=== PATIENT | female | born 1950 | race Caucasian/White ===

== ENCOUNTER 2023-10-11 07:22 | Inpatient (IN) | payer MEDICARE, OTHER ==
[2023-10-11] VITALS (15 sets, daily range): BP systolic 61–151; BP diastolic 46–101; TEMP 98.3–99.9; O2SAT 96–100
[~2023-10-11] VITALS: Ht 162.6 cm; Wt 60.8 kg
[2023-10-11] MEDS ORDERED: FAMOTIDINE/PF INJ 20 MG/2 ML VIAL IV ONE ×2 (07:51→20:15)
[2023-10-11] MEDS ORDERED: ONDANSETRON HCL/PF 4 MG/2 ML VIAL ONE (07:51)
[2023-10-11] MEDS ORDERED: MORPHINE SULFATE INJ 2 MG/ML DISP.SYRIN ONE (07:51)
[2023-10-11] MEDS: FAMOTIDINE/PF INJ 20 MG/2 ML VIAL IV ONE (07:53)
[2023-10-11] MEDS: ONDANSETRON HCL/PF 4 MG/2 ML VIAL IVP ONE (07:53)
[2023-10-11] MEDS: MORPHINE SULFATE INJ 2 MG/ML DISP.SYRIN IV ONE (07:53)
[2023-10-11] MEDS: IV NS 0.9% 1,000 ML BAG IV ONE (07:53)
[2023-10-11 08:10] LABS: BASOPHILS % (AUTO) 0.1 % (0.0-2.0); HEMATOCRIT 49 % (33-45); HEMOGLOBIN 16.3 g/dL (11.5-14.8); LYMPHOCYTES # (AUTO) 0.6 K/uL (0.8-4.8); LYMPHOCYTES % (AUTO) 3.4 % (20.0-44.0); MEAN CORPUSCULAR HEMOGLOBIN 30 PG (26.0-33.0); MEAN CORPUSCULAR HGB CONC 33 g/dl (31.0-36.0); MEAN CORPUSCULAR VOLUME 91 fL (82-100); MONOCYTES # (AUTO) 0.7 K/uL (0.1-1.30); MONOCYTES % (AUTO) 3.9 % (2.0-12.0); NEUTROPHILS # (AUTO) 15.6 K/uL (1.8-8.9); NEUTROPHILS % (AUTO) 92.6 % (43.0-81.0); PLATELET COUNT (AUTO) 224 K/uL (150-450); RED BLOOD CELL COUNT(AUTO) 5.42 MIL/uL (4.0-5.2); RED CELL DISTRIBUTION WIDTH 13.5 % (11.5-15.0); WHITE BLOOD COUNT (AUTO) 16.9 K/uL (4.3-11.0)
[2023-10-11 08:13] LABS: APPEARANCE,URINE CLEAR (CLEAR); BILIRUBIN,URINE NEGATIVE (NEGATIVE); BLOOD, URINE 1+ Ery/uL (NEGATIVE); COLOR,URINE YELLOW (YELLOW); KETONES,URINE 3+ mg/dL (NEGATIVE); LEUKOCYTE ESTERASE ,URINE NEGATIVE (NEGATIVE); NITRITE, URINE NEGATIVE (NEGATIVE); PH,URINE 6.5 (5.0-8.0); PROTEIN,URINE NEGATIVE (NEGATIVE); UGLUCOSE NEGATIVE (NEGATIVE); UROBILINOGEN,URINE 0.2 EU/dL (0.2)
[2023-10-11 08:19] LABS: CALCIUM, SERUM 9.8 mg/dL (8.5-10.1); CARBON DIOXIDE 27 mmol/L (21-32); CHLORIDE 98 mmol/L (98-107); CREATININE 0.8 mg/dL (0.6-1.3); GLUCOSE 179 mg/dL (74-106); POTASSIUM 3.3 mmol/L (3.5-5.1); SODIUM SERUM 137 mmol/L (136-145); UREA NITROGEN, BLOOD 19 mg/dL (7-18)
[2023-10-11 08:25] LABS: ALANINE AMINOTRANSFERASE 22 U/L (12-78); ALBUMIN 3.7 g/dL (3.4-5.0); ALKALINE PHOSPHATASE 130 U/L (46-116); ASPARTATE AMINOTRANSFERASE 20 U/L (15-37); BILIRUBIN,DIRECT 0.2 mg/dL (0.0-0.2); BILIRUBIN,TOTAL 0.7 mg/dL (0.2-1.0); LIPASE 28 U/L (16-77)
[2023-10-11 08:28] LABS: WBC,URINE 0-2 /HPF (0-3)
[2023-10-11 08:29] LABS: ADD URINE CULTURE NO; BACTERIA,URINE None seen /HPF (None Seen); TRICHOMONAS,URINE None Seen /HPF (None Seen); URINE AMORPHOUS URATE Few /HPF (None Seen); YEAST,URINE None Seen /HPF (None Seen)
[2023-10-11 08:33] LABS: URIC ACID CRYSTALS,URINE Few /HPF (None Seen)
[2023-10-11] MEDS ORDERED: ASPI-1420 PO (09:08)
[2023-10-11] MEDS ORDERED: VIT1TABL81 PO (09:08)
[2023-10-11] MEDS ORDERED: MULT-213 PO (09:08)
[2023-10-11] MEDS ORDERED: CALC-1026 PO (09:08)
[2023-10-11] MEDS ORDERED: LACT1CAP69 PO (09:08)
[2023-10-11] MEDS ORDERED: LEVO75TA7 PO (09:08)
[2023-10-11] MEDS ORDERED: CHOL200059 PO (09:08)
[2023-10-11] MEDS: ONDANSETRON HCL/PF 4 MG/2 ML VIAL IV PRN (12:45)
[2023-10-11] MEDS: IV D5/0.45 NACL 1,000 ML IV PRN (13:26)
[2023-10-11] MEDS ORDERED: DIATR MEGLU/DIATRIZOATE SODIUM 120 ML BOTTLE (GASTROGRAPHIN) ONE (13:55)
[2023-10-11] MEDS: ENOXAPARIN SODIUM 40 MG/0.4 ML DISP.SYRIN SQ SCH (15:27)
[2023-10-11 18:05] LABS: LACTIC ACID 12.5 mmol/L (0.4-2.0)
[2023-10-11] MEDS: IV NS 0.9% 1,000 ML IV ONE (18:31)
[2023-10-11] MEDS: Sodium Bicarbonate 150 MEQ in IV D5W 1,000 ML IV SCH (18:51)
[2023-10-11 19:03] LABS: ABG BASE EXCESS -15.8 mmol/L; ABG OXYGEN SATURATION 98.3 % (92.0-98.5); ABG PCO2 21.5 mmHg (35.0-45.0); ABG PH 7.229 (7.350-7.450); ABG PO2 137.3 mmHg (75.0-100.0); ABG TOTAL HEMOGLOBIN 21.3 G/dL (12.0-16.0); AaDO2 94.4 mmHg; COHb 0.3 % (0.5-1.5); MetHb 0.6 % (0.0-1.5); O2Hb 97.4 % (94.0-97.0); SITE, ABG Right Radial; VENT MODE, BG 4 LPM NC
[2023-10-11] MEDS: NOREPINEPHRINE 8 MG in IV D5W 242 ML IV PRN (19:04)
[2023-10-11] MEDS: CEFEPIME 1 GM in IV D5W 50 ML IV SCH (19:08)
[2023-10-11] MEDS ORDERED: BUPIVACAINE 0.5 % PF 150 MG/30 ML VIAL ONE (20:05)
[2023-10-11] MEDS ORDERED: ANESTHESIA TRAY IN PYXIS 1 EA TRAY MC ONE (20:05)
[2023-10-11] MEDS ORDERED: LIDOCAINE 1%-EPI 1:100,000 20 ML VIAL ONE (20:06)
[2023-10-11] MEDS ORDERED: KETAMINE HCL (500MG/10ML) 50 MG/ML VIAL ONE (20:14)
[2023-10-11] MEDS ORDERED: FENTANYL PF 100MCG/2ML AMPUL ONE (20:14)
[2023-10-11] MEDS ORDERED: HYDROMORPHONE INJ 2 MG/ML DISP.SYRIN ONE (20:14)
[2023-10-11] MEDS ORDERED: MIDAZOLAM HCL 2 MG/2ML VIAL ONE (20:14)
[2023-10-11] MEDS: VANCOMYCIN HCL 1.25 GM in IV D5W 250 ML IV SCH (20:16)
[2023-10-12] VITALS (100 sets, daily range): BP systolic 82–149; BP diastolic 51–95; TEMP 96.2–101.8; O2SAT 96–100
[2023-10-12 00:04] LABS: BASOPHILS % (AUTO) 0.2 % (0.0-2.0); EOSINOPHILS % (AUTO) 0.1 % (0.0-6.0); HEMATOCRIT 48 % (33-45); HEMOGLOBIN 15.7 g/dL (11.5-14.8); LYMPHOCYTES # (AUTO) 0.5 K/uL (0.8-4.8); LYMPHOCYTES % (AUTO) 9.2 % (20.0-44.0); MEAN CORPUSCULAR HEMOGLOBIN 30 PG (26.0-33.0); MEAN CORPUSCULAR HGB CONC 33 g/dl (31.0-36.0); MEAN CORPUSCULAR VOLUME 93 fL (82-100); MONOCYTES # (AUTO) 0.4 K/uL (0.1-1.30); MONOCYTES % (AUTO) 7.8 % (2.0-12.0); NEUTROPHILS # (AUTO) 4.6 K/uL (1.8-8.9); NEUTROPHILS % (AUTO) 82.7 % (43.0-81.0); PLATELET COUNT (AUTO) 150 K/uL (150-450); RED BLOOD CELL COUNT(AUTO) 5.17 MIL/uL (4.0-5.2); RED CELL DISTRIBUTION WIDTH 13.8 % (11.5-15.0); WHITE BLOOD COUNT (AUTO) 5.5 K/uL (4.3-11.0)
[2023-10-12 00:13] LABS: CALCIUM, SERUM 6.2 mg/dL (8.5-10.1); CARBON DIOXIDE 15 mmol/L (21-32); CHLORIDE 113 mmol/L (98-107); CREATININE 1.5 mg/dL (0.6-1.3); GLUCOSE 156 mg/dL (74-106); SODIUM SERUM 144 mmol/L (136-145); UREA NITROGEN, BLOOD 29 mg/dL (7-18)
[2023-10-12 00:17] LABS: POTASSIUM 2.8 mmol/L (3.5-5.1)
[2023-10-12 01:30] LABS: ALBUMIN 1.4 g/dL (3.4-5.0)
[2023-10-12 01:35] LABS: LACTIC ACID 7.2 mmol/L (0.4-2.0)
[2023-10-12] MEDS: ALBUMIN 25% 12.5 GM/50 ML BOTTLE IV ONE (01:54)
[2023-10-12] MEDS: POTASSIUM CL. PREMIX PERIPHER. 50 ML IV SCH (03:00)
[2023-10-12] MEDS: PROPOFOL 100 ML IV PRN (03:09)
[2023-10-12 04:16] LABS: BASOPHILS % (AUTO) 0.1 % (0.0-2.0); EOSINOPHILS % (AUTO) 0.1 % (0.0-6.0); HEMATOCRIT 52 % (33-45); HEMOGLOBIN 16.9 g/dL (11.5-14.8); LYMPHOCYTES # (AUTO) 0.7 K/uL (0.8-4.8); LYMPHOCYTES % (AUTO) 10.6 % (20.0-44.0); MEAN CORPUSCULAR HEMOGLOBIN 31 PG (26.0-33.0); MEAN CORPUSCULAR HGB CONC 33 g/dl (31.0-36.0); MEAN CORPUSCULAR VOLUME 94 fL (82-100); MONOCYTES # (AUTO) 0.3 K/uL (0.1-1.30); MONOCYTES % (AUTO) 4.5 % (2.0-12.0); NEUTROPHILS # (AUTO) 5.3 K/uL (1.8-8.9); NEUTROPHILS % (AUTO) 84.7 % (43.0-81.0); PLATELET COUNT (AUTO) 150 K/uL (150-450); RED CELL DISTRIBUTION WIDTH 14.4 % (11.5-15.0); WHITE BLOOD COUNT (AUTO) 6.3 K/uL (4.3-11.0)
[2023-10-12 04:47] LABS: CALCIUM, SERUM 6.8 mg/dL (8.5-10.1); CARBON DIOXIDE 17 mmol/L (21-32); CHLORIDE 109 mmol/L (98-107); CREATININE 1.7 mg/dL (0.6-1.3); GLUCOSE 203 mg/dL (74-106); MAGNESIUM 1.8 mg/dL (1.8-2.4); PHOSPHORUS 3.7 mg/dL (2.5-4.9); SODIUM SERUM 141 mmol/L (136-145); UREA NITROGEN, BLOOD 29 mg/dL (7-18)
[2023-10-12 04:56] LABS: CHOLESTEROL 89 mg/dL (<200); HDL CHOLESTEROL 57 mg/dL (40-60); LDL 28 mg/dL (0-99); TRIGLYCERIDES 39 mg/dL (30-150)
[2023-10-12] MEDS: Magnesium 1GM/D5W 100ML PREMIX PIGGYBACK IV ONE (09:39)
[2023-10-12] MEDS: PANTOPRAZOLE 40 MG VIAL IV SCH (09:53)
[2023-10-12] MEDS ORDERED: CLINDAMYCIN 300 MG in IV D5W 50 ML IV SCH (13:00)
[2023-10-12] MEDS ORDERED: METRONIDAZOLE 500MG/ NS 100ML 500 MG in PREMIX 1 EA IV SCH (13:00)
[2023-10-12] MEDS: CLINDAMYCIN 600 MG in IV NS 0.9% 46 ML IV SCH (13:27)
[2023-10-12 17:08] LABS: CALCIUM, SERUM 6.3 mg/dL (8.5-10.1); CARBON DIOXIDE 20 mmol/L (21-32); CHLORIDE 101 mmol/L (98-107); GLUCOSE 169 mg/dL (74-106); POTASSIUM 4.2 mmol/L (3.5-5.1); SODIUM SERUM 133 mmol/L (136-145); UREA NITROGEN, BLOOD 38 mg/dL (7-18)
[2023-10-12] MEDS: ACETAMINOPHEN 650 MG/SUPP.RECT RC PRN (17:15)
[2023-10-12] MEDS: VANCOMYCIN 500 MG in IV D5W 100ml IV SCH (19:01)
[2023-10-12] MEDS: NOREPINEPHRINE 32 MG in IV NS 0.9% 218 ML IV PRN (20:25)
[2023-10-13] VITALS (100 sets, daily range): BP systolic 67–138; BP diastolic 44–82; TEMP 98.1–100.7; O2SAT 93–99
[2023-10-13 04:22] LABS: BASOPHILS % (AUTO) 0.1 % (0.0-2.0); EOSINOPHILS % (AUTO) 0.3 % (0.0-6.0); HEMATOCRIT 46 % (33-45); HEMOGLOBIN 15.4 g/dL (11.5-14.8); LYMPHOCYTES # (AUTO) 0.6 K/uL (0.8-4.8); LYMPHOCYTES % (AUTO) 4.2 % (20.0-44.0); MEAN CORPUSCULAR HEMOGLOBIN 30 PG (26.0-33.0); MEAN CORPUSCULAR HGB CONC 34 g/dl (31.0-36.0); MEAN CORPUSCULAR VOLUME 90 fL (82-100); MONOCYTES # (AUTO) 0.4 K/uL (0.1-1.30); MONOCYTES % (AUTO) 3.3 % (2.0-12.0); NEUTROPHILS # (AUTO) 12.4 K/uL (1.8-8.9); NEUTROPHILS % (AUTO) 92.1 % (43.0-81.0); PLATELET COUNT (AUTO) 81 K/uL (150-450); RED BLOOD CELL COUNT(AUTO) 5.06 MIL/uL (4.0-5.2); RED CELL DISTRIBUTION WIDTH 13.6 % (11.5-15.0); WHITE BLOOD COUNT (AUTO) 13.4 K/uL (4.3-11.0)
[2023-10-13 04:48] LABS: ALANINE AMINOTRANSFERASE 176 U/L (12-78); ALKALINE PHOSPHATASE 82 U/L (46-116); ASPARTATE AMINOTRANSFERASE 204 U/L (15-37); BILIRUBIN,TOTAL 0.6 mg/dL (0.2-1.0); CARBON DIOXIDE 23 mmol/L (21-32); CHLORIDE 96 mmol/L (98-107); CREATININE 2.4 mg/dL (0.6-1.3); GLUCOSE 112 mg/dL (74-106); MAGNESIUM 2.6 mg/dL (1.8-2.4); PHOSPHORUS 4.6 mg/dL (2.5-4.9); POTASSIUM 4.7 mmol/L (3.5-5.1); SODIUM SERUM 132 mmol/L (136-145); TOTAL PROTEIN, SERUM 4.3 g/dL (6.4-8.2); UREA NITROGEN, BLOOD 43 mg/dL (7-18)
[2023-10-13 04:53] LABS: ALBUMIN 1.4 g/dL (3.4-5.0)
[2023-10-13 04:56] LABS: NEUTROPHILS % (MANUAL) 90 (42-76)
[2023-10-13 04:57] LABS: ANISOCYTOSIS 1+; BASOPHILS % (MANUAL) 0 % (0.0-2.0); EOSINOPHILS % (MANUAL) 0 % (0-4); LYMPHOCYTES % (MANUAL) 6 % (16-48); MONOCYTES % (MANUAL) 4 % (0-11.0); PLATELET ESTIMATE DECREASED
[2023-10-13 05:37] LABS: ABG BASE EXCESS -3.4 mmol/L; ABG OXYGEN SATURATION 95.1 % (92.0-98.5); ABG PCO2 24.2 mmHg (35.0-45.0); ABG PH 7.485 (7.350-7.450); ABG PO2 71.8 mmHg (75.0-100.0); ABG TOTAL HEMOGLOBIN 16.3 G/dL (12.0-16.0); AaDO2 185.6 mmHg; COHb 1.3 % (0.5-1.5); MetHb 0.3 % (0.0-1.5); O2Hb 93.6 % (94.0-97.0); PEEP,BG 5 cm H2O; SITE, ABG Right Radial; VENT MODE, BG AC12 500 FIO2 40 PEEP+5; VT, ABG 500 mL
[2023-10-13 17:27] LABS: ABG BASE EXCESS 1.9 mmol/L; ABG OXYGEN SATURATION 96.5 % (92.0-98.5); ABG PCO2 29.1 mmHg (35.0-45.0); ABG PH 7.526 (7.350-7.450); ABG PO2 79.7 mmHg (75.0-100.0); ABG TOTAL HEMOGLOBIN 14.6 G/dL (12.0-16.0); COHb 1.4 % (0.5-1.5); MetHb 0.3 % (0.0-1.5); O2Hb 94.9 % (94.0-97.0); SITE, ABG Right Radial; VENT MODE, BG CPAP PS 15 +5 40%
[2023-10-13] MEDS ORDERED: [UNRECOGNIZED DRUG - OTHER] IV PRN (18:30)
[2023-10-13] MEDS ORDERED: MEROPENEM 1 G in IV NS 0.9% 100 ML IV SCH (18:30)
[2023-10-13] MEDS: MEROPENEM 500 MG in IV NS 0.9% 50 ML IV SCH (19:04)
[2023-10-13 19:30] LABS: BASOPHILS % (AUTO) 0.1 % (0.0-2.0); EOSINOPHILS # (AUTO) 0.1 K/uL (0.0-0.7); EOSINOPHILS % (AUTO) 0.5 % (0.0-6.0); LYMPHOCYTES # (AUTO) 0.3 K/uL (0.8-4.8); NEUTROPHILS # (AUTO) 12.4 K/uL (1.8-8.9); WHITE BLOOD COUNT (AUTO) 12.8 K/uL (4.3-11.0)
[2023-10-13 19:36] LABS: HEMATOCRIT 41 % (33-45); HEMOGLOBIN 14.1 g/dL (11.5-14.8); LYMPHOCYTES % (AUTO) 2.2 % (20.0-44.0); MEAN CORPUSCULAR HEMOGLOBIN 31 PG (26.0-33.0); MEAN CORPUSCULAR HGB CONC 35 g/dl (31.0-36.0); MEAN CORPUSCULAR VOLUME 89 fL (82-100); MONOCYTES # (AUTO) 0.1 K/uL (0.1-1.30); MONOCYTES % (AUTO) 0.5 % (2.0-12.0); NEUTROPHILS % (AUTO) 96.7 % (43.0-81.0); RED BLOOD CELL COUNT(AUTO) 4.58 MIL/uL (4.0-5.2); RED CELL DISTRIBUTION WIDTH 13.8 % (11.5-15.0)
[2023-10-13 19:41] LABS: PLATELET COUNT (AUTO) 48 K/uL (150-450)
[2023-10-13 20:14] LABS: ANISOCYTOSIS 1+; BAND % (MANUAL) 2 % (0.0-5.0); LYMPHOCYTES % (MANUAL) 4 % (16-48); MONOCYTES % (MANUAL) 2 % (0-11.0); NEUTROPHILS % (MANUAL) 92 (42-76); PLATELET ESTIMATE DECREASED
[2023-10-13 20:18] LABS: ALANINE AMINOTRANSFERASE 269 U/L (12-78); ALKALINE PHOSPHATASE 97 U/L (46-116); ASPARTATE AMINOTRANSFERASE 346 U/L (15-37); BILIRUBIN,TOTAL 0.7 mg/dL (0.2-1.0); CALCIUM, SERUM 6.3 mg/dL (8.5-10.1); CARBON DIOXIDE 28 mmol/L (21-32); CHLORIDE 93 mmol/L (98-107); CREATININE 2.3 mg/dL (0.6-1.3); GLUCOSE 75 mg/dL (74-106); MAGNESIUM 2.4 mg/dL (1.8-2.4); PHOSPHORUS 5.3 mg/dL (2.5-4.9); POTASSIUM 4.4 mmol/L (3.5-5.1); SODIUM SERUM 133 mmol/L (136-145); UREA NITROGEN, BLOOD 49 mg/dL (7-18)
[2023-10-13 20:21] LABS: ALBUMIN 1.2 g/dL (3.4-5.0)
[2023-10-13] MEDS ORDERED: CEFEPIME 1 GM in IV D5W 50 ML IV SCH (21:00)
[2023-10-13] MEDS: ALBUMIN 25% 100 ML IV ONE (22:17)
[2023-10-13] MEDS: ALBUMIN 25% 25 GM in PREMIX 1 EA IV ONE (22:29)
[2023-10-14] VITALS (36 sets, daily range): BP systolic 98–145; BP diastolic 35–62; TEMP 98.3–99; O2SAT 96–100
[2023-10-14 03:44] LABS: EOSINOPHILS # (AUTO) 0.1 K/uL (0.0-0.7); EOSINOPHILS % (AUTO) 0.8 % (0.0-6.0); HEMATOCRIT 34 % (33-45); HEMOGLOBIN 11.9 g/dL (11.5-14.8); LYMPHOCYTES # (AUTO) 0.3 K/uL (0.8-4.8); LYMPHOCYTES % (AUTO) 3.4 % (20.0-44.0); MEAN CORPUSCULAR HEMOGLOBIN 31 PG (26.0-33.0); MEAN CORPUSCULAR HGB CONC 35 g/dl (31.0-36.0); MEAN CORPUSCULAR VOLUME 88 fL (82-100); MONOCYTES # (AUTO) 0.1 K/uL (0.1-1.30); MONOCYTES % (AUTO) 0.9 % (2.0-12.0); NEUTROPHILS # (AUTO) 7.8 K/uL (1.8-8.9); NEUTROPHILS % (AUTO) 94.9 % (43.0-81.0); RED BLOOD CELL COUNT(AUTO) 3.88 MIL/uL (4.0-5.2); RED CELL DISTRIBUTION WIDTH 13.5 % (11.5-15.0); WHITE BLOOD COUNT (AUTO) 8.2 K/uL (4.3-11.0)
[2023-10-14 04:03] LABS: ALANINE AMINOTRANSFERASE 217 U/L (12-78); ALBUMIN 1.6 g/dL (3.4-5.0); ALKALINE PHOSPHATASE 85 U/L (46-116); ASPARTATE AMINOTRANSFERASE 246 U/L (15-37); CARBON DIOXIDE 34 mmol/L (21-32); CHLORIDE 92 mmol/L (98-107); CREATININE 2.1 mg/dL (0.6-1.3); GLUCOSE 69 mg/dL (74-106); LIPASE 8 U/L (16-77); MAGNESIUM 2.4 mg/dL (1.8-2.4); POTASSIUM 3.7 mmol/L (3.5-5.1); SODIUM SERUM 134 mmol/L (136-145); TOTAL PROTEIN, SERUM 3.9 g/dL (6.4-8.2); UREA NITROGEN, BLOOD 49 mg/dL (7-18)
[2023-10-14 04:13] LABS: ERYTHROCYTE SEDIMENTATION RATE 8 MM/HR (0-30)
[2023-10-14 04:14] LABS: PLATELET COUNT (AUTO) 32 K/uL (150-450)
[2023-10-14 04:16] LABS: LACTIC ACID 5.3 mmol/L (0.4-2.0)
[2023-10-14 04:54] LABS: BAND % (MANUAL) 2 % (0.0-5.0); BASOPHILS % (MANUAL) 0 % (0.0-2.0); EOSINOPHILS % (MANUAL) 0 % (0-4); LYMPHOCYTES % (MANUAL) 5 % (16-48); MONOCYTES % (MANUAL) 2 % (0-11.0); NEUTROPHILS % (MANUAL) 91 (42-76); PLATELET ESTIMATE DECREASED
[2023-10-14] MEDS: IV D5W 1,000 ML IV PRN (06:23)
[2023-10-14 07:44] LABS: BILIRUBIN,DIRECT 0.5 mg/dL (0.0-0.2)
[2023-10-14 07:53] LABS: LACTIC ACID REFLEX 4.7 mmol/L (0.4-1.9)
[2023-10-14] MEDS: IV LR 1000 ML 1,000 ML IV SCH (09:18)
[2023-10-14 11:35] LABS: D-DIMER 2.26 mg/L(FEU (0.17-0.50); INR 1.18 (0.91-1.10); PARTIAL THROMBOPLASTIN TIME 60.1 SEC (24.3-34.3); PROTHROMBIN TIME 12.4 SECS (9.2-11.1)
[2023-10-14] MEDS ORDERED: NOREPINEPHRINE 8 MG in IV D5W 250ML IV PRN (19:00)
[2023-10-14] MEDS: VANCOMYCIN 750 MG in IV D5W 250 ML IV SCH (20:30)
[2023-10-15] VITALS (50 sets, daily range): BP systolic 98–150; BP diastolic 45–98; TEMP 98.4–99.4; O2SAT 91–100
[2023-10-15 04:22] LABS: EOSINOPHILS # (AUTO) 0.9 K/uL (0.0-0.7); EOSINOPHILS % (AUTO) 7.9 % (0.0-6.0); HEMATOCRIT 35 % (33-45); HEMOGLOBIN 11.8 g/dL (11.5-14.8); LYMPHOCYTES # (AUTO) 0.3 K/uL (0.8-4.8); LYMPHOCYTES % (AUTO) 2.3 % (20.0-44.0); MEAN CORPUSCULAR HEMOGLOBIN 31 PG (26.0-33.0); MEAN CORPUSCULAR HGB CONC 34 g/dl (31.0-36.0); MEAN CORPUSCULAR VOLUME 90 fL (82-100); MONOCYTES # (AUTO) 0.1 K/uL (0.1-1.30); MONOCYTES % (AUTO) 0.5 % (2.0-12.0); NEUTROPHILS # (AUTO) 10.4 K/uL (1.8-8.9); NEUTROPHILS % (AUTO) 89.3 % (43.0-81.0); RED BLOOD CELL COUNT(AUTO) 3.86 MIL/uL (4.0-5.2); RED CELL DISTRIBUTION WIDTH 13.8 % (11.5-15.0); WHITE BLOOD COUNT (AUTO) 11.7 K/uL (4.3-11.0)
[2023-10-15 04:34] LABS: PLATELET COUNT (AUTO) 39 K/uL (150-450)
[2023-10-15 04:36] LABS: RHEUMATOID FACTOR SCREEN NEGATIVE (NEGATIVE)
[2023-10-15 04:45] LABS: D-DIMER 2.48 mg/L(FEU (0.17-0.50); INR 1.06 (0.91-1.10); PARTIAL THROMBOPLASTIN TIME 48.7 SEC (24.3-34.3); PROTHROMBIN TIME 11.2 SECS (9.2-11.1)
[2023-10-15 04:55] LABS: ALANINE AMINOTRANSFERASE 182 U/L (12-78); ALKALINE PHOSPHATASE 104 U/L (46-116); ASPARTATE AMINOTRANSFERASE 155 U/L (15-37); CALCIUM, SERUM 7.5 mg/dL (8.5-10.1); CARBON DIOXIDE 39 mmol/L (21-32); CHLORIDE 95 mmol/L (98-107); CREATININE 1.4 mg/dL (0.6-1.3); LIPASE 20 U/L (16-77); MAGNESIUM 2.4 mg/dL (1.8-2.4); TOTAL PROTEIN, SERUM 4.1 g/dL (6.4-8.2); UREA NITROGEN, BLOOD 40 mg/dL (7-18)
[2023-10-15 05:09] LABS: C-REACTIVE PROTEIN > 25.00 mg/dL (0.0-0.30)
[2023-10-15 05:17] LABS: SODIUM SERUM 136 mmol/L (136-145)
[2023-10-15 05:31] LABS: ALBUMIN 1.4 g/dL (3.4-5.0); GLUCOSE 46 mg/dL (74-106); POTASSIUM 2.5 mmol/L (3.5-5.1)
[2023-10-15] MEDS: DEXTROSE 50%-WATER 50 ML DISP.SYRIN IVP STA (05:45)
[2023-10-15] MEDS: ALBUMIN 25% 100 ML IV ONE (06:25)
[2023-10-15] MEDS: POTASSIUM CL. PREMIX PERIPHER. 50 ML IV SCH ×2 (06:27→15:41)
[2023-10-15] MEDS: ALBUMIN 25% 25 GM in PREMIX 1 EA IV SCH (06:28)
[2023-10-15] MEDS: BLOOD SUGAR DIAGNOSTIC 1 EACH STRIP IN PRN (07:28)
[2023-10-15] MEDS: Potassium Chloride 40 MEQ in IV D5/0.45 NACL 1,000 ML IV SCH (08:54)
[2023-10-15 10:25] LABS: ANISOCYTOSIS 1+; BAND % (MANUAL) 2 % (0.0-5.0); BASOPHILS % (MANUAL) 0 % (0.0-2.0); EOSINOPHILS % (MANUAL) 0 % (0-4); LYMPHOCYTES % (MANUAL) 6 % (16-48); MONOCYTES % (MANUAL) 3 % (0-11.0); NEUTROPHILS % (MANUAL) 89 (42-76); OVALOCYTES 1+; PLATELET ESTIMATE DECREASED
[2023-10-15 14:54] LABS: CALCIUM, SERUM 7.5 mg/dL (8.5-10.1); CREATININE 1.1 mg/dL (0.6-1.3)
[2023-10-15 15:08] LABS: POTASSIUM 2.6 mmol/L (3.5-5.1)
[2023-10-15] MEDS: VANCOMYCIN 1 GM in IV D5W 250ml IV SCH (20:13)
[2023-10-15] MEDS: MORPHINE SULFATE INJ 2 MG/ML DISP.SYRIN IV PRN (21:15)
[2023-10-16] VITALS (36 sets, daily range): BP systolic 115–176; BP diastolic 43–83; TEMP 98.5–99.8; O2SAT 94–100
[2023-10-16] MEDS: SUCRALFATE 1 G/10 ML UDC PO SCH (00:03)
[2023-10-16 01:33] LABS: CALCIUM, SERUM 7.6 mg/dL (8.5-10.1); POTASSIUM 3.5 mmol/L (3.5-5.1)
[2023-10-16 04:47] LABS: EOSINOPHILS % (AUTO) 0.1 % (0.0-6.0); HEMATOCRIT 30 % (33-45); HEMOGLOBIN 10.2 g/dL (11.5-14.8); LYMPHOCYTES # (AUTO) 0.4 K/uL (0.8-4.8); LYMPHOCYTES % (AUTO) 2.3 % (20.0-44.0); MEAN CORPUSCULAR HEMOGLOBIN 30 PG (26.0-33.0); MEAN CORPUSCULAR HGB CONC 34 g/dl (31.0-36.0); MEAN CORPUSCULAR VOLUME 89 fL (82-100); MONOCYTES # (AUTO) 0.1 K/uL (0.1-1.30); MONOCYTES % (AUTO) 0.6 % (2.0-12.0); NEUTROPHILS # (AUTO) 17.2 K/uL (1.8-8.9); RED BLOOD CELL COUNT(AUTO) 3.34 MIL/uL (4.0-5.2); RED CELL DISTRIBUTION WIDTH 13.8 % (11.5-15.0); WHITE BLOOD COUNT (AUTO) 17.7 K/uL (4.3-11.0)
[2023-10-16 05:01] LABS: D-DIMER 2.45 mg/L(FEU (0.17-0.50); INR 1.02 (0.91-1.10); PROTHROMBIN TIME 10.8 SECS (9.2-11.1)
[2023-10-16 05:11] LABS: BILIRUBIN,TOTAL 0.8 mg/dL (0.2-1.0); CALCIUM, SERUM 8.2 mg/dL (8.5-10.1); CREATININE 0.9 mg/dL (0.6-1.3); MAGNESIUM 2.3 mg/dL (1.8-2.4); POTASSIUM 3.5 mmol/L (3.5-5.1); TOTAL PROTEIN, SERUM 4.4 g/dL (6.4-8.2)
[2023-10-16 05:15] LABS: PLATELET COUNT (AUTO) 35 K/uL (150-450)
[2023-10-16] MEDS: IV NS 0.9% 250 ML IV PRN (05:26)
[2023-10-16] MEDS: METOCLOPRAMIDE HCL 10 MG/2 ML VIAL IV SCH (08:32)
[2023-10-16 09:11] LABS: IMMUNOGLOBULIN A, SERUM 133 mg/dL (64-422); IMMUNOGLOBULIN G, SERUM 296 mg/dL (586-1602); IMMUNOGLOBULIN M, SERUM 30 mg/dL (26-217)
[2023-10-16 09:53] LABS: ANISOCYTOSIS 1+; BAND % (MANUAL) 9 % (0.0-5.0); LYMPHOCYTES % (MANUAL) 6 % (16-48); MONOCYTES % (MANUAL) 4 % (0-11.0); NEUTROPHILS % (MANUAL) 81 (42-76); PLATELET ESTIMATE DECREASED
[2023-10-16 11:10] LABS: FOLIC ACID 11.2 ng/mL (>3.0)
[2023-10-16] MEDS: VANCOMYCIN 500 MG in IV D5W 100ml IV SCH (13:17)
[2023-10-16 14:10] LABS: FREE KAPPA LT CHAINS SERUM 14.4 mg/L (3.3-19.4)
[2023-10-16] MEDS: CLONIDINE HCL 0.1 MG TABLET PO PRN (21:35)
[2023-10-17] VITALS (37 sets, daily range): BP systolic 112–198; BP diastolic 41–167; TEMP 97.4–99.2; O2SAT 95–100
[2023-10-17 02:43] LABS: OCCULT BLOOD STOOL POSITIVE (NEGATIVE)
[2023-10-17 04:38] LABS: BASOPHILS # (AUTO) 0.1 K/uL (0.0-0.2); BASOPHILS % (AUTO) 0.3 % (0.0-2.0); EOSINOPHILS % (AUTO) 0.2 % (0.0-6.0); HEMATOCRIT 32 % (33-45); HEMOGLOBIN 10.9 g/dL (11.5-14.8); LYMPHOCYTES # (AUTO) 0.5 K/uL (0.8-4.8); LYMPHOCYTES % (AUTO) 2.5 % (20.0-44.0); MEAN CORPUSCULAR HEMOGLOBIN 30 PG (26.0-33.0); MEAN CORPUSCULAR HGB CONC 34 g/dl (31.0-36.0); MEAN CORPUSCULAR VOLUME 90 fL (82-100); MONOCYTES # (AUTO) 0.1 K/uL (0.1-1.30); MONOCYTES % (AUTO) 0.4 % (2.0-12.0); NEUTROPHILS # (AUTO) 19.5 K/uL (1.8-8.9); NEUTROPHILS % (AUTO) 96.6 % (43.0-81.0); RED BLOOD CELL COUNT(AUTO) 3.61 MIL/uL (4.0-5.2); WHITE BLOOD COUNT (AUTO) 20.2 K/uL (4.3-11.0)
[2023-10-17 04:41] LABS: ALBUMIN 1.6 g/dL (3.4-5.0); BILIRUBIN,DIRECT 0.3 mg/dL (0.0-0.2); BILIRUBIN,TOTAL 0.6 mg/dL (0.2-1.0); CALCIUM, SERUM 8.1 mg/dL (8.5-10.1); CREATININE 0.8 mg/dL (0.6-1.3); D-DIMER 3.23 mg/L(FEU (0.17-0.50); INR 1.03 (0.91-1.10); MAGNESIUM 2.2 mg/dL (1.8-2.4); PARTIAL THROMBOPLASTIN TIME 36.2 SEC (24.3-34.3); PHOSPHORUS 1.6 mg/dL (2.5-4.9); POTASSIUM 4.1 mmol/L (3.5-5.1); PROTHROMBIN TIME 10.9 SECS (9.2-11.1); TOTAL PROTEIN, SERUM 4.5 g/dL (6.4-8.2)
[2023-10-17 04:42] LABS: PLATELET COUNT (AUTO) 44 K/uL (150-450)
[2023-10-17] MEDS ORDERED: PANTOPRAZOLE 40 MG TABLET.DR PO SCH (09:00)
[2023-10-17] MEDS: PANTOPRAZOLE 40 MG VIAL IV SCH (09:12)
[2023-10-17] MEDS: MEROPENEM 500 MG in IV NS 0.9% 100 ML IV ONE (09:13)
[2023-10-17 09:51] LABS: ANISOCYTOSIS 1+; BAND % (MANUAL) 8 % (0.0-5.0); BASOPHILS % (MANUAL) 0 % (0.0-2.0); EOSINOPHILS % (MANUAL) 0 % (0-4); LYMPHOCYTES % (MANUAL) 7 % (16-48); MONOCYTES % (MANUAL) 6 % (0-11.0); NEUTROPHILS % (MANUAL) 79 (42-76); OVALOCYTES 1+; PLATELET ESTIMATE DECREASED; STOMATOCYTES 1+
[2023-10-17] MEDS: SUCRALFATE 1 G TABLET PO SCH (10:43)
[2023-10-17] MEDS: Sodium Phosphate 30 MMOL in IV NS 0.9% 250 ML IV ONE (10:46)
[2023-10-17] MEDS: IV 1/2NS 1000 ML 1,000 ML IV PRN (12:00)
[2023-10-17] MEDS: VANCOMYCIN 500 MG in IV D5W 100ml IV ONE (15:14)
[2023-10-17] MEDS: MEROPENEM 1 G in IV NS 0.9% 100 ML IV SCH (20:48)
[2023-10-18] VITALS (24 sets, daily range): BP systolic 124–190; BP diastolic 39–98; TEMP 97.7–98.7; O2SAT 91–98
[2023-10-18] MEDS: VANCOMYCIN 750 MG in IV D5W 250 ML IV SCH (00:34)
[2023-10-18 04:34] LABS: BASOPHILS % (AUTO) 0.1 % (0.0-2.0); EOSINOPHILS % (AUTO) 0.3 % (0.0-6.0); HEMATOCRIT 30 % (33-45); HEMOGLOBIN 10.3 g/dL (11.5-14.8); LYMPHOCYTES # (AUTO) 0.7 K/uL (0.8-4.8); LYMPHOCYTES % (AUTO) 3.9 % (20.0-44.0); MEAN CORPUSCULAR HEMOGLOBIN 30 PG (26.0-33.0); MEAN CORPUSCULAR HGB CONC 34 g/dl (31.0-36.0); MEAN CORPUSCULAR VOLUME 90 fL (82-100); MONOCYTES # (AUTO) 0.2 K/uL (0.1-1.30); MONOCYTES % (AUTO) 0.9 % (2.0-12.0); NEUTROPHILS # (AUTO) 17.8 K/uL (1.8-8.9); NEUTROPHILS % (AUTO) 94.8 % (43.0-81.0); PLATELET COUNT (AUTO) 109 K/uL (150-450); RED BLOOD CELL COUNT(AUTO) 3.38 MIL/uL (4.0-5.2); RED CELL DISTRIBUTION WIDTH 13.9 % (11.5-15.0); WHITE BLOOD COUNT (AUTO) 18.8 K/uL (4.3-11.0)
[2023-10-18 05:03] LABS: ALANINE AMINOTRANSFERASE 65 U/L (12-78); ALKALINE PHOSPHATASE 99 U/L (46-116); ASPARTATE AMINOTRANSFERASE 33 U/L (15-37); BILIRUBIN,TOTAL 0.6 mg/dL (0.2-1.0); CALCIUM, SERUM 7.7 mg/dL (8.5-10.1); CARBON DIOXIDE 34 mmol/L (21-32); CHLORIDE 104 mmol/L (98-107); CREATININE 0.7 mg/dL (0.6-1.3); GLUCOSE 86 mg/dL (74-106); PHOSPHORUS 2.8 mg/dL (2.5-4.9); POTASSIUM 3.5 mmol/L (3.5-5.1); SODIUM SERUM 140 mmol/L (136-145); TOTAL PROTEIN, SERUM 4.3 g/dL (6.4-8.2); UREA NITROGEN, BLOOD 19 mg/dL (7-18)
[2023-10-18 05:06] LABS: ALBUMIN 1.4 g/dL (3.4-5.0); LACTIC ACID 0.8 mmol/L (0.4-2.0)
[2023-10-18 06:05] LABS: INR 1.05 (0.91-1.10); PARTIAL THROMBOPLASTIN TIME 36.9 SEC (24.3-34.3); PROTHROMBIN TIME 11.1 SECS (9.2-11.1)
[2023-10-18 06:08] LABS: D-DIMER 4.5 mg/L(FEU (0.17-0.50)
[2023-10-18] MEDS: FERROUS SULFATE (325 MG) 325 MG/TAB TABLET PO SCH (08:50)
[2023-10-18] MEDS: SUCRALFATE 1 G TABLET PO SCH (17:30)
[2023-10-18] MEDS: MEROPENEM 1 G in IV NS 0.9% 100 ML IV SCH (18:33)
[2023-10-18] MEDS: ACETAMINOPHEN 325 MG TABLET PO PRN (19:00)
[2023-10-19] VITALS (11 sets, daily range): BP systolic 112–177; BP diastolic 46–60; TEMP 97.7–98.9; O2SAT 96–100
[2023-10-19 07:05] LABS: ALBUMIN 1.6 g/dL (3.4-5.0); BILIRUBIN,TOTAL 0.7 mg/dL (0.2-1.0); CREATININE 0.6 mg/dL (0.6-1.3); MAGNESIUM 1.9 mg/dL (1.8-2.4); PHOSPHORUS 2.2 mg/dL (2.5-4.9); POTASSIUM 4.1 mmol/L (3.5-5.1); TOTAL PROTEIN, SERUM 4.6 g/dL (6.4-8.2)
[2023-10-19 07:38] LABS: BASOPHILS % (AUTO) 0.1 % (0.0-2.0); EOSINOPHILS % (AUTO) 0.1 % (0.0-6.0); HEMATOCRIT 32 % (33-45); HEMOGLOBIN 10.6 g/dL (11.5-14.8); LYMPHOCYTES # (AUTO) 0.6 K/uL (0.8-4.8); LYMPHOCYTES % (AUTO) 3.1 % (20.0-44.0); MEAN CORPUSCULAR HEMOGLOBIN 30 PG (26.0-33.0); MEAN CORPUSCULAR HGB CONC 33 g/dl (31.0-36.0); MEAN CORPUSCULAR VOLUME 90 fL (82-100); MONOCYTES # (AUTO) 0.2 K/uL (0.1-1.30); MONOCYTES % (AUTO) 0.9 % (2.0-12.0); NEUTROPHILS # (AUTO) 19.2 K/uL (1.8-8.9); NEUTROPHILS % (AUTO) 95.8 % (43.0-81.0); PLATELET COUNT (AUTO) 172 K/uL (150-450); RED BLOOD CELL COUNT(AUTO) 3.57 MIL/uL (4.0-5.2); RED CELL DISTRIBUTION WIDTH 14.1 % (11.5-15.0)
[2023-10-19] MEDS: hydrALAZINE HCL IV 20 MG VIAL IV PRN (08:43)
[2023-10-19] MEDS: AMLODIPINE BESYLATE 5 MG TABLET PO SCH (12:49)
[2023-10-19] MEDS: K PHOS NEUTRAL 250 MG TABLET PO ONE (16:31)
[2023-10-19] MEDS: ENOXAPARIN SODIUM 40 MG/0.4 ML DISP.SYRIN SQ SCH (18:50)
[2023-10-19] MEDS: SOD FERRIC GLUC 125 MG in IV NS 0.9% 100 ML IV SCH (19:23)
[2023-10-19 23:06] LABS: HEPATITIS Be AB Non Reactive (Negative)
[2023-10-19 23:35] LABS: ANISOCYTOSIS 1+; BAND % (MANUAL) 7 % (0.0-5.0); BASOPHILS % (MANUAL) 0 % (0.0-2.0); EOSINOPHILS % (MANUAL) 0 % (0-4); LYMPHOCYTES % (MANUAL) 6 % (16-48); MONOCYTES % (MANUAL) 3 % (0-11.0); NEUTROPHILS % (MANUAL) 84 (42-76); PLATELET ESTIMATE ADEQUATE
[2023-10-20] VITALS: BP 135/59; TEMP 98; O2SAT 96
[2023-10-20 04:00] VITALS: BP 156/41; TEMP 97.9; O2SAT 94
[2023-10-20 06:50] LABS: BASOPHILS % (AUTO) 0.1 % (0.0-2.0); HEMATOCRIT 34 % (33-45); HEMOGLOBIN 11.3 g/dL (11.5-14.8); LYMPHOCYTES # (AUTO) 0.7 K/uL (0.8-4.8); LYMPHOCYTES % (AUTO) 3.9 % (20.0-44.0); MEAN CORPUSCULAR HEMOGLOBIN 30 PG (26.0-33.0); MEAN CORPUSCULAR HGB CONC 33 g/dl (31.0-36.0); MEAN CORPUSCULAR VOLUME 90 fL (82-100); MONOCYTES # (AUTO) 0.4 K/uL (0.1-1.30); MONOCYTES % (AUTO) 2.2 % (2.0-12.0); NEUTROPHILS # (AUTO) 16.9 K/uL (1.8-8.9); NEUTROPHILS % (AUTO) 93.8 % (43.0-81.0); PLATELET COUNT (AUTO) 226 K/uL (150-450); RED BLOOD CELL COUNT(AUTO) 3.75 MIL/uL (4.0-5.2); RED CELL DISTRIBUTION WIDTH 13.7 % (11.5-15.0)
[2023-10-20 07:12] LABS: CALCIUM, SERUM 8.1 mg/dL (8.5-10.1); CREATININE 0.7 mg/dL (0.6-1.3); MAGNESIUM 1.9 mg/dL (1.8-2.4); PHOSPHORUS 2.8 mg/dL (2.5-4.9); POTASSIUM 3.9 mmol/L (3.5-5.1)
[2023-10-20 08:00] VITALS: BP 145/50; TEMP 98.1; O2SAT 95
[2023-10-20 08:11] LABS: *ANA ANTI-CENTROMERE B AB <0.2 AI (0.0-0.9); *ANA ANTI-DNA(DS) AB, QN <1 IU/mL (0-9); *ANA ANTI-JO-1 <0.2 AI (0.0-0.9); *ANA ANTICHROMATIN ANTIBODY <0.2 AI (0.0-0.9); *ANA RNP ANTIBODIES <0.2 AI (0.0-0.9); *ANA SJOGREN'S ANTI-SS-A <0.2 AI (0.0-0.9); *ANA SJOGREN'S ANTI-SS-B 0.2 AI (0.0-0.9); *ANAANTI-SCLERODERMA-70 AB <0.2 AI (0.0-0.9); *ANASMITH AB <0.2 AI (0.0-0.9)
[2023-10-20] MEDS: LEVOTHYROXINE SODIUM 75 MCG TABLET PO SCH (08:44)
[2023-10-20 11:40] VITALS: BP 118/50; TEMP 97.7; O2SAT 98
[2023-10-20 14:56] LABS: ANISOCYTOSIS 1+; LYMPHOCYTES % (MANUAL) 4 % (16-48); METAMYELOCYTES % 2 % (0-0); MONOCYTES % (MANUAL) 4 % (0-11.0); NEUTROPHILS % (MANUAL) 90 (42-76); PLATELET ESTIMATE ADEQUATE
[2023-10-20 16:00] VITALS: BP 108/60; TEMP 97.7; O2SAT 94
[2023-10-20 20:00] VITALS: BP 117/51; TEMP 98.2; O2SAT 93
[2023-10-21] VITALS (7 sets, daily range): BP systolic 117–124; BP diastolic 50–67; TEMP 97.4–98.4; O2SAT 93–100
[2023-10-21 04:09] LABS: *SPE A/G RATIO 1.1 (0.7-1.7); *SPE ALBUMIN 1.8 g/dL (2.9-4.4); *SPE ALPHA-1-GLOBULIN 0.4 g/dL (0.0-0.4); *SPE ALPHA-2-GLOBULIN 0.7 g/dL (0.4-1.0); *SPE BETA GLOBULIN 0.3 g/dL (0.7-1.3); *SPE GLOBULIN, TOTAL 1.7 g/dL (2.2-3.9); *SPE M-SPIKE 0.1 g/dL (Not Observed); *SPE PROTEIN TOTAL 3.5 g/dL (6.0-8.5); *SPEGAMMA GLOBULIN 0.3 g/dL (0.4-1.8)
[2023-10-21 07:19] LABS: CALCIUM, SERUM 8.6 mg/dL (8.5-10.1); CARBON DIOXIDE 22 mmol/L (21-32); CHLORIDE 103 mmol/L (98-107); CREATININE 0.7 mg/dL (0.6-1.3); GLUCOSE 70 mg/dL (74-106); POTASSIUM 3.4 mmol/L (3.5-5.1); SODIUM SERUM 138 mmol/L (136-145); UREA NITROGEN, BLOOD 16 mg/dL (7-18)
[2023-10-21 08:14] LABS: BASOPHILS % (AUTO) 0.1 % (0.0-2.0); EOSINOPHILS % (AUTO) 0.1 % (0.0-6.0); HEMATOCRIT 33 % (33-45); LYMPHOCYTES # (AUTO) 0.5 K/uL (0.8-4.8); LYMPHOCYTES % (AUTO) 2.1 % (20.0-44.0); MEAN CORPUSCULAR HEMOGLOBIN 30 PG (26.0-33.0); MEAN CORPUSCULAR HGB CONC 34 g/dl (31.0-36.0); MEAN CORPUSCULAR VOLUME 89 fL (82-100); MONOCYTES # (AUTO) 0.4 K/uL (0.1-1.30); NEUTROPHILS # (AUTO) 20.8 K/uL (1.8-8.9); NEUTROPHILS % (AUTO) 95.7 % (43.0-81.0); PLATELET COUNT (AUTO) 298 K/uL (150-450); RED BLOOD CELL COUNT(AUTO) 3.66 MIL/uL (4.0-5.2); RED CELL DISTRIBUTION WIDTH 13.7 % (11.5-15.0); WHITE BLOOD COUNT (AUTO) 21.8 K/uL (4.3-11.0)
[2023-10-21] MEDS: PANTOPRAZOLE 40 MG TABLET.DR PO SCH (09:00)
[2023-10-21] MEDS: POTASSIUM CHLORIDE 20 MEQ TAB.PRT.SR PO SCH (11:01)
[2023-10-21 11:14] LABS: ANISOCYTOSIS 1+; EOSINOPHILS % (MANUAL) 0 % (0-4); LYMPHOCYTES % (MANUAL) 5 % (16-48); MONOCYTES % (MANUAL) 4 % (0-11.0); NEUTROPHILS % (MANUAL) 91 (42-76); PLATELET ESTIMATE ADEQUATE
[2023-10-21] MEDS: LOPERAMIDE HCL (2 MG CAP) 2 MG CAPSULE PO PRN (12:27)
[2023-10-21] MEDS ORDERED: IOHEXOL-300 100 ML VIAL IV ONE (14:47)
[2023-10-21] MEDS ORDERED: IV NS 0.9% 250 ML IV ONE (14:47)
[2023-10-22] VITALS: BP 117/56; TEMP 98.1; O2SAT 95
[2023-10-22 05:00] VITALS: BP 121/54; TEMP 98.5; O2SAT 96
[2023-10-22 05:57] VITALS: O2SAT 99
[2023-10-22 07:30] VITALS: BP 110/51; TEMP 97.5; O2SAT 98
[2023-10-22 07:51] LABS: CALCIUM, SERUM 7.8 mg/dL (8.5-10.1); CREATININE 0.6 mg/dL (0.6-1.3); POTASSIUM 3.7 mmol/L (3.5-5.1)
[2023-10-22 08:08] LABS: BASOPHILS % (AUTO) 0.1 % (0.0-2.0); EOSINOPHILS % (AUTO) 0.1 % (0.0-6.0); HEMATOCRIT 31 % (33-45); HEMOGLOBIN 10.2 g/dL (11.5-14.8); LYMPHOCYTES # (AUTO) 0.3 K/uL (0.8-4.8); LYMPHOCYTES % (AUTO) 1.2 % (20.0-44.0); MEAN CORPUSCULAR HEMOGLOBIN 30 PG (26.0-33.0); MEAN CORPUSCULAR HGB CONC 33 g/dl (31.0-36.0); MEAN CORPUSCULAR VOLUME 91 fL (82-100); MONOCYTES # (AUTO) 0.5 K/uL (0.1-1.30); MONOCYTES % (AUTO) 2.3 % (2.0-12.0); NEUTROPHILS # (AUTO) 21.7 K/uL (1.8-8.9); NEUTROPHILS % (AUTO) 96.3 % (43.0-81.0); PLATELET COUNT (AUTO) 289 K/uL (150-450); RED CELL DISTRIBUTION WIDTH 13.8 % (11.5-15.0); WHITE BLOOD COUNT (AUTO) 22.5 K/uL (4.3-11.0)
[2023-10-22] MEDS ORDERED: DIATR MEGLU/DIATRIZOATE SODIUM 30 ML BOTTLE (GASTROGRAPHIN) ONE (08:14)
[2023-10-22 08:25] VITALS: BP 135/60; TEMP 98.2; O2SAT 97
[2023-10-22] MEDS ORDERED: TPN/PPN PER PHARMACY IV PRN (10:00)
[2023-10-22] MEDS ORDERED: IV D5/0.45 NACL 1,000 ML IV PRN (11:00)
[2023-10-22 11:15] LABS: MAGNESIUM 2.1 mg/dL (1.8-2.4); PHOSPHORUS 3.1 mg/dL (2.5-4.9); PREALBUMIN 10.3 MG/DL (18.0-35.7)
[2023-10-22] MEDS: BLOOD SUGAR DIAGNOSTIC 1 EACH STRIP IN SCH (11:29)
[2023-10-22] MEDS: TPN BAG #1 IV SCH (11:29)
[2023-10-22] MEDS ORDERED: DEXTROSE 50%-WATER 50 ML DISP.SYRIN IV PRN (11:30)
[2023-10-22] MEDS ORDERED: DOSE PER PHARMACY MICAFUNGIN 1 EA IV PRN (11:30)
[2023-10-22 11:34] LABS: ALBUMIN 1.4 g/dL (3.4-5.0)
[2023-10-22] MEDS: MICAFUNGIN SODIUM 100 MG in IV NS 0.9% 100 ML IV SCH (12:13)
[2023-10-22] MEDS: INSULIN REGULAR, HUMAN 100 UNIT/ML 3 ML VIAL SQ PRN (23:23)
[2023-10-23 01:22] VITALS: BP 125/59; TEMP 98.2; O2SAT 97
[2023-10-23 04:56] VITALS: BP 121/62; TEMP 98.2; O2SAT 98
[2023-10-23 06:50] LABS: BASOPHILS % (AUTO) 0.2 % (0.0-2.0); EOSINOPHILS % (AUTO) 0.2 % (0.0-6.0); HEMATOCRIT 29 % (33-45); HEMOGLOBIN 9.7 g/dL (11.5-14.8); LYMPHOCYTES # (AUTO) 0.2 K/uL (0.8-4.8); LYMPHOCYTES % (AUTO) 2.8 % (20.0-44.0); MEAN CORPUSCULAR HEMOGLOBIN 31 PG (26.0-33.0); MEAN CORPUSCULAR HGB CONC 34 g/dl (31.0-36.0); MEAN CORPUSCULAR VOLUME 90 fL (82-100); MONOCYTES # (AUTO) 0.4 K/uL (0.1-1.30); MONOCYTES % (AUTO) 5.2 % (2.0-12.0); NEUTROPHILS # (AUTO) 7.5 K/uL (1.8-8.9); NEUTROPHILS % (AUTO) 91.6 % (43.0-81.0); PLATELET COUNT (AUTO) 287 K/uL (150-450); RED BLOOD CELL COUNT(AUTO) 3.19 MIL/uL (4.0-5.2); RED CELL DISTRIBUTION WIDTH 13.4 % (11.5-15.0); WHITE BLOOD COUNT (AUTO) 8.2 K/uL (4.3-11.0)
[2023-10-23 07:00] VITALS: BP 115/70; TEMP 98.1; O2SAT 99
[2023-10-23 07:09] LABS: CHOLESTEROL 100 mg/dL (<200); HDL CHOLESTEROL 38 mg/dL (40-60); LDL 44 mg/dL (0-99); TRIGLYCERIDES 89 mg/dL (30-150)
[2023-10-23 07:32] LABS: CALCIUM, SERUM 7.8 mg/dL (8.5-10.1); CREATININE 0.6 mg/dL (0.6-1.3); MAGNESIUM 1.8 mg/dL (1.8-2.4); PHOSPHORUS 1.6 mg/dL (2.5-4.9); POTASSIUM 3.7 mmol/L (3.5-5.1)
[2023-10-23] MEDS: ENOXAPARIN SODIUM 40 MG/0.4 ML DISP.SYRIN SQ SCH (08:34)
[2023-10-23] MEDS ORDERED: Sodium Phosphate 15 MMOL in IV NS 0.9% 245 ML IV SCH (11:00)
[2023-10-23] MEDS: POTASSIUM PHOSPHATE MM 15 MMOL in IV NS 0.9% 250 ML IV SCH (11:07)
[2023-10-23 11:30] VITALS: BP 126/65; TEMP 97.9; O2SAT 100
[2023-10-23] MEDS: TPN BAG #2 IV SCH (12:08)
[2023-10-23 16:00] VITALS: BP 112/50; TEMP 98.2; O2SAT 99
[2023-10-23] MEDS ORDERED: Z GUARD REMEDY 4 OZ OINT TP SCH (17:00)
[2023-10-23] MEDS ORDERED: Z GUARD REMEDY 4 OZ OINT TP PRN (17:00)
[2023-10-23 20:15] VITALS: BP 119/56; TEMP 98.1; O2SAT 98
== END 2023-10-23 20:20 | DRG 853 ==
LOC: ER 07:26 → MEDSG1 10:44 → ICU 18:07 → TELE 10-19 00:46
PROVIDERS: ATTEND Internal Medicine
PROC: 0DBB0ZZ Excision of Ileum, Open Approach (ICD-10-PCS; principal; 2023-10-11)
PROC: 0D1B0ZB Bypass Ileum to Ileum, Open Approach (ICD-10-PCS; 2023-10-11)
PROC: 0DNU0ZZ Release Omentum, Open Approach (ICD-10-PCS; 2023-10-11)
PROC: 02HV33Z Insertion of Infusion Device into Superior Vena Cava, Percutaneous Approach (ICD-10-PCS; 2023-10-12)
PROC: B548ZZA Ultrasonography of Superior Vena Cava, Guidance (ICD-10-PCS; 2023-10-12)
PROC: 30233R1 Transfusion of Nonautologous Platelets into Peripheral Vein, Percutaneous Approach (ICD-10-PCS; 2023-10-14)
DX: A41.9 Sepsis, unspecified organism (principal); J96.00 Acute respiratory failure, unspecified whether with hypoxia or hypercapnia; R65.21 Severe sepsis with septic shock; N17.0 Acute kidney failure with tubular necrosis; R57.1 Hypovolemic shock; K56.51 Intestinal adhesions [bands], with partial obstruction; E87.1 Hypo-osmolality and hyponatremia; E87.4 Mixed disorder of acid-base balance; D84.9 Immunodeficiency, unspecified; G93.40 Encephalopathy, unspecified; I82.612 Acute embolism and thrombosis of superficial veins of left upper extremity; J90 Pleural effusion, not elsewhere classified; J98.11 Atelectasis; K56.7 Ileus, unspecified; E83.51 Hypocalcemia; E86.0 Dehydration; E87.6 Hypokalemia; E03.9 Hypothyroidism, unspecified; Z88.1 Allergy status to other antibiotic agents; Z79.82 Long term (current) use of aspirin; Z79.890 Hormone replacement therapy; Z79.899 Other long term (current) drug therapy; Z90.710 Acquired absence of both cervix and uterus; R79.89 Other specified abnormal findings of blood chemistry; E87.5 Hyperkalemia; D69.6 Thrombocytopenia, unspecified; D75.1 Secondary polycythemia; K31.84 Gastroparesis; M89.8X9 Other specified disorders of bone, unspecified site; Z85.3 Personal history of malignant neoplasm of breast; Z92.3 Personal history of irradiation; Z90.10 Acquired absence of unspecified breast and nipple; R74.01 Elevation of levels of liver transaminase levels; D46.9 Myelodysplastic syndrome, unspecified
CPT/HCPCS: 31720; 36415; 36569; 36600; 71045-TC; 71260-TC; 74018; 74250-TC; 80048-TC; 80053-TC; 80061-TC; 80076-TC; 80202-TC; 81001; 82040-TC; 82248-TC; 82272-TC; 82378; 82607-TC; 82728-TC; 82784; 82803-TC; 82962-TC; 83540-TC; 83605-TC; 83690-TC; 83735-TC; 84100-TC; 84134-TC; 84155; 84165; 84443-TC; 84484-TC; 85025-TC; 85396; 85652-TC; 86022; 86140-TC; 86225; 86235; 86300; 86334; 86431-TC; 86707; 86803; 86850-TC; 87040-TC; 87086-TC; 87340; 88307-TC; 93970-TC; 94002-TC; 94003-TC; 94760-TC; 94762-TC; 94799-TC; 97110-TC; 97116-TC; 97530-TC; 97535-TC; A4216; A4223; A9563; C9113; G0378; J0330; J0360; J0692; J1100; J1170; J1650; J1815; J2185; J2248; J2250; J2270; J2405; J2704; J2765; J2916; J3010; J3370; J3371; J3475; J3480; J3490; J7030; J7040; J7050; J7060; J7070; J7120; P9034; P9047; Q9963; Q9967